=== PATIENT | male | born 1965 | race Two or more races ===

== ENCOUNTER → 2025-01-10 | Outpatient (CLI) | payer BC, SELFPAY ==
[2025-01-10 10:03] LABS: Collection Type, Urine Clean Catch
[2025-01-10 10:16] LABS: Basophils % (Auto) 0 % (0-2.5); Eosinophils # (Auto) 0.2 Thou/mm3 (0.0-0.5); Eosinophils % (Auto) 3 % (0-10); Hematocrit 50.5 % (41.0-53.0); Hemoglobin 17.6 g/dL (13.5-16.0); Immature Granulocytes % (Auto) 0 % (0-0); Immature Granulocytes Auto 0.02 Thou/mm3 (0.00-0.00); Lymphocytes % (Auto) 35 % (10-50); Mean Corpuscular HGB Conc 34.9 g/dl (31.0-37.0); Mean Corpuscular Hemoglobin 30.7 pg (25.0-35.0); Mean Corpuscular Volume 88 fL (80-100); Monocytes # (Auto) 0.5 Thou/mm3 (0.0-0.8); Monocytes % (Auto) 9 % (0-12); Neutrophils % (Auto) 53 % (37-80); Nucleated Red Blood Cell % 0 /100 WBC (0); Platelet Count 234 Thou/mm3 (140-440); RDW Standard Deviation 39.1 fL (35.1-43.9); Red Blood Count 5.73 Miln/mm3 (4.50-5.90); White Blood Count 5.7 Thou/mm3 (3.8-10.6)
[2025-01-10 10:34] LABS: Bilirubin,Urine Negative (Negative); Blood,Urine Negative (Negative); Clarity,Urine Clear (Clear/Hazy); Color,Urine Yellow (Lt Yel-Yel); Glucose, Urine Negative (Negative); Ketones,Urine Negative (Negative); Leukocyte Esterase,Urine Negative (Negative); Nitrite,Urine Negative (Negative); Protein,Urine Negative (Neg - Trace); RBC,Urine 1 /hpf (0-3); Specific Gravity,Urine 1.024 (1.001-1.035); Squamous Epithelial Cell,Urine < 1 /hpf (0-5); Urobilinogen,Urine Negative mg/dL (0.0-1.0); WBC,Urine 1 /hpf (0-5)
[2025-01-10 10:36] LABS: Prostate Specific Antigen 0.89 ng/mL (0-4.00)
[2025-01-10 10:50] LABS: Alanine Aminotransferase 45 U/L (10-49); Albumin, Serum 4.9 gm/dL (3.4-4.8); Anion Gap 6 (7-16); Aspartate Amino Transferase 30 U/L (0-34); BUN/Creatinine Ratio 19 Ratio (12-20); Bilirubin,Direct 0.4 mg/dL (0.0-0.3); Bilirubin,Total 1.3 mg/dL (0.3-1.2); Blood Urea Nitrogen 23 mg/dL (9-23); Calcium 9.8 mg/dL (8.3-10.6); Carbon Dioxide 29.9 mMol/L (20.0-31.0); Cardiac Risk Estimate 4.7 RATIO (4.0-6.7); Chloride 97 mMol/L (98-107); Cholesterol 193 mg/dL (132-200); Creatinine (Component) 1.2 mg/dL (0.6-1.3); Glucose 108 mg/dL (74-106); HDL Cholesterol 41 mg/dL (40-60); LDL Cholesterol,Calculated 127 mg/dL (0-130); Osmolality,Calculated 271 (275-295); Phosphorous 2.3 mg/dL (2.4-5.1); Potassium 4.5 mMol/L (3.4-5.1); Sodium 133 mMol/L (136-145); Total Protein 7.8 gm/dL (5.7-8.2); Triglycerides 126 mg/dL (30-150); eGFR > 60 See Note
[2025-01-10 11:31] LABS: Alkaline Phosphatase 154 U/L (46-116)
[2025-01-16 07:06] LABS: Homocysteine* 15.6 umol/L (<11.4); hs-CRP* 1.1 mg/L
== END | disposition home or self-care (01) ==
LOC: COPL 09:41
PROVIDERS: PCP Family Medicine; Referring Provider Family Medicine; Visit Provider Family Medicine
DX: E03.9 Hypothyroidism, unspecified (principal); B38.89 Other forms of coccidioidomycosis; E88.9 Metabolic disorder, unspecified
CPT/HCPCS: 36415; 80048; 80061; 80076; 81001; 83090; 84100; 84153; 85025; 86141

== ENCOUNTER 2025-05-26 07:50 | Day surgery (SDC) | payer BC, SELFPAY ==
[2025-05-26] VITALS (10 sets, daily range): BP systolic 102–143; BP diastolic 67–91; PULSE 81–99; RESP 12–19; TEMP 36.5–36.6; O2SAT 95–100; BMI 26.9
[2025-05-26] MEDS: SODIUM CHLORIDE 0.9% 500 ML 500 ML 20 ML IV (09:57)
[2025-05-26] MEDS: fentaNYL CIT INJ 50 mCg/ML AMP 2ML (ASD USE ONLY) IVP ×2 (09:59→10:14)
[2025-05-26] MEDS: LIDOCAINE JELLY 2% (Urojet) 10 ML TUBE TOP (09:59)
[2025-05-26] MEDS: MIDAZOLAM INJ 1 MG/ML VIAL 2 ML (ASD USE ONLY) 2 MG IVP ×2 (09:59→10:14)
--- NOTE | 2025-05-26 10:49 | SUR.PHASEII ---
1019: Pt received for recovery. Report from Lena HIDALGO. Pt groggy. Easily aroused with eye opening. Resp even, unlabored. VS stable. Denies pain. 1049: Pt more awake, alert. VS stable. Denies pain. Sitting up tolerating po fluids with no difficulty swallowing and no n/v.
--- NOTE | 2025-05-26 11:06 | SUR.PHASEII ---
1101: Pt fully awake, oriented x3. VS stable. Denies pain. Pt assisted to restroom. Ambulation steady. Pt and daughter stated understanding of discharge instructions. Pt discharged from [facility] in stable condition.
== END 2025-05-26 11:01 | disposition home or self-care (01) ==
PROVIDERS: PCP Family Medicine; Referring Provider Specialist; Visit Provider Specialist
PROC: 0DBE8ZX Excision of Large Intestine, Via Natural or Artificial Opening Endoscopic, Diagnostic (ICD-10-PCS; CPT 45380; principal; 2025-05-26 09:00)
DX: K64.3 Fourth degree hemorrhoids (principal)
CPT/HCPCS: 46221; A4649; J1200; J2250; J3010; J7999